=== PATIENT | male | born 1980 | race African-American/Black ===

== ENCOUNTER 2020-01-03 12:20 | Emergency (ER) | payer MEDICAID ==
[~2020-01-03] VITALS: Ht 188 cm; Wt 133.0 kg
[2020-01-03 15:54] LABS: CLARITY URINE CLEAR (CLEAR); COLOR URINE DARK YELLOW (YELLOW); KETONES URINE TRACE (NEGATIVE); LEUKOCYTE ESTERASE URINE TRACE (NEGATIVE); NITRITE URINE NEGATIVE (NEGATIVE); OCCULT BLOOD URINE NEGATIVE (NEGATIVE); PH URINE 6.5 (4.5-8.0); PROTEIN URINE 1+ (NEGATIVE); SPECIFIC GRAVITY URINE 1.025 (1.005-1.030)
[2020-01-03 16:19] LABS: BASOPHILS % 0.5 % (0.0-2.0); EOSINOPHILS % 1.3 % (0.0-5.0); HEMATOCRIT. 45.9 % (42.0-52.0); HEMOGLOBIN. 14.9 g/dL (14.0-18.0); LYMPHOCYTES % 16.9 % (20.0-50.0); MEAN CORPUSCULAR HEMOGLOBIN 27.6 pg (28.0-32.0); MEAN CORPUSCULAR VOLUME 84.9 fL (80.0-94.0); MONOCYTES % 6.1 % (2.0-8.0); NEUTROPHILS % 75.2 % (40.0-76.0); PLATELET 421 x1000/uL (130-400); RED CELL DISTRIBUTION WIDTH 16.5 % (11.6-14.6)
[2020-01-03 16:24] LABS: CHLORIDE 101 mEq/L (98-107)
[2020-01-03 16:30] LABS: ETHANOL BLOOD < 10 mg/dL
[2020-01-03 16:35] LABS: *AMPHETAMINES SCREEN URINE NEGATIVE (NEGATIVE)
[2020-01-03 16:36] LABS: *BARBITURATES SCREEN URINE NEGATIVE (NEGATIVE); *BENZODIAZEPINES SCREEN URINE NEGATIVE (NEGATIVE); *COCAINE SCREEN URINE NEGATIVE (NEGATIVE); CANNABINOID URINE SCREEN NEGATIVE (NEGATIVE); METHADONE URINE SCREEN NEGATIVE (NEGATIVE); OPIATES URINE SCREEN NEGATIVE (NEGATIVE)
[2020-01-03 16:37] LABS: PHENCYCLIDINE URINE SCREEN NEGATIVE (NEGATIVE)
[2020-01-03] MEDS ORDERED: KETOROLAC 60MG/2ML VIAL IM ONE (17:00)
[2020-01-03] MEDS ORDERED: LORAZEPAM 1MG TABLET PO STA (18:25)
[2020-01-03] MEDS: OLANZAPINE 2.5MG TABLET PO SCH (18:52)
[2020-01-03] MEDS: OXCARBAZEPINE 300MG TABLET PO SCH (21:46)
[2020-01-04] MEDS: OXCARBAZEPINE 300MG TABLET PO SCH ×2 (09:00→21:15)
[2020-01-04] MEDS ORDERED: BUPROPION HCL 150MG TABLET XL 24HR PO ONE (09:15)
[2020-01-04] MEDS ORDERED: OLANZAPINE 10MG TABLET PO SCH (09:15)
[2020-01-04] MEDS ORDERED: OXCARBAZEPINE 300MG TABLET PO SCH (09:15)
[2020-01-04] MEDS: OLANZAPINE 2.5MG TABLET PO SCH ×2 (10:06→21:15)
[2020-01-04] MEDS ORDERED: OLANZAPINE 5MG TABLET PO SCH (17:00)
[2020-01-04] MEDS: LORAZEPAM 1MG TABLET PO PRN (20:04)
[2020-01-05] MEDS: OXCARBAZEPINE 300MG TABLET PO SCH (09:00)
[2020-01-05] MEDS: OLANZAPINE 2.5MG TABLET PO SCH (09:00)
[2020-01-05] MEDS: BUPROPION HCL 150MG TABLET XL 24HR PO SCH (09:21)
[2020-01-05] MEDS: LORAZEPAM 1MG TABLET PO PRN (10:26)
[2020-01-06] MEDS: OLANZAPINE 2.5MG TABLET PO SCH ×2 (01:25→09:49)
[2020-01-06] MEDS: OXCARBAZEPINE 300MG TABLET PO SCH ×2 (01:25→09:49)
[2020-01-06] MEDS: LORAZEPAM 1MG TABLET PO PRN (01:29)
[2020-01-06] MEDS: BUPROPION HCL 150MG TABLET XL 24HR PO SCH (09:49)
[2020-01-06 16:10] VITALS: BP 147/73
== END 2020-01-06 16:50 | disposition home or self-care (01) ==
LOC: ER 12:30
DX: G40.909 Epilepsy, unspecified, not intractable, without status epilepticus (principal); R45.851 Suicidal ideations; R44.0 Auditory hallucinations; E11.9 Type 2 diabetes mellitus without complications; E66.01 Morbid (severe) obesity due to excess calories; I49.9 Cardiac arrhythmia, unspecified; Z68.37 Body mass index [BMI] 37.0-37.9, adult; Z88.0 Allergy status to penicillin; Z91.14 Patient's other noncompliance with medication regimen
CPT/HCPCS: 36415; 73030; 80053; 80305; 80320; 81003; 83735; 84100; 85025; 93005; 96372; 99285; J1885; Z7610; G0480